=== PATIENT | male | born 1995 | race Caucasian/White ===

== ENCOUNTER 2021-10-17 14:22 | Emergency (ER) | payer BC ==
[~2021-10-17] VITALS: Ht 180.3 cm; Wt 104.5 kg
[2021-10-17 15:10] VITALS: BP 118/74
[2021-10-17 16:26] VITALS: PULSE 92; TEMP 101
== END 2021-10-17 16:29 | disposition home or self-care (01) ==
LOC: COL.ER 14:22
DX: J10.1 Influenza due to other identified influenza virus with other respiratory manifestations (principal); Z20.822 Contact with and (suspected) exposure to COVID-19